=== PATIENT | male | born 1955 | race Caucasian/White ===

== ENCOUNTER 2024-11-16 19:09 | Emergency (ER) | payer MEDICARE, BC ==
[~2024-11-16] VITALS: Ht 177.8 cm; Wt 81.6 kg
[2024-11-16 21:38] LABS: BASOPHILS # (AUTO) 0.1 K/uL (0.0-0.2); BASOPHILS % (AUTO) 0.8 % (0.0-2.0); EOSINOPHILS # (AUTO) 0.1 K/uL (0.0-0.7); EOSINOPHILS % (AUTO) 1.5 % (0.0-6.0); HEMATOCRIT 41 % (39-51); LYMPHOCYTES # (AUTO) 1.8 K/uL (0.8-4.8); LYMPHOCYTES % (AUTO) 21.8 % (20.0-44.0); MEAN CORPUSCULAR HEMOGLOBIN 31 PG (26.0-33.0); MEAN CORPUSCULAR HGB CONC 34 g/dl (31.0-36.0); MEAN CORPUSCULAR VOLUME 90 fL (80-96); MONOCYTES # (AUTO) 0.6 K/uL (0.1-1.30); NEUTROPHILS # (AUTO) 5.8 K/uL (1.8-8.9); NEUTROPHILS % (AUTO) 68.9 % (43.0-81.0); PLATELET COUNT (AUTO) 248 K/uL (150-450); RED BLOOD CELL COUNT(AUTO) 4.51 MIL/uL (4.5-6.0); RED CELL DISTRIBUTION WIDTH 13.4 % (11.5-15.0); WHITE BLOOD COUNT (AUTO) 8.4 K/uL (4.3-11.0)
[2024-11-16 21:45] LABS: CALCIUM, SERUM 8.9 mg/dL (8.5-10.1); CARBON DIOXIDE 26 mmol/L (21-32); CHLORIDE 104 mmol/L (98-107); GLUCOSE 104 mg/dL (74-106); POTASSIUM 4.2 mmol/L (3.5-5.1); SODIUM SERUM 139 mmol/L (136-145); UREA NITROGEN, BLOOD 18 mg/dL (7-18)
[2024-11-16] MEDS ORDERED: hydrALAZINE HCL 10 MG TABLET PO ONE (22:00)
[2024-11-16] MEDS ORDERED: hydrALAZINE HCL 50 MG TABLET ONE (22:18)
[2024-11-16] MEDS: hydrALAZINE HCL 25 MG TABLET PO ONE (22:22)
[2024-11-16 23:04] VITALS: BP 163/85; TEMP 98.2; O2SAT 96
== END 2024-11-16 23:05 | disposition home or self-care (01) ==
LOC: ER 19:20
DX: I10 Essential (primary) hypertension (principal)
CPT/HCPCS: 36415; 80048-TC; 84484-TC; 85025-TC